=== PATIENT | female | born 1960 | race Caucasian/White ===

== ENCOUNTER → 2024-08-27 11:22 | Outpatient (CLI) | payer MEDICARE, SELFPAY ==
[2024-08-27 12:23] LABS: Influenza A - CEPHEID Flu A NEGATIVE (NEGATIVE); Influenza B - CEPHEID Flu B NEGATIVE (NEGATIVE)
[2024-08-27 12:26] LABS: COVID-19 CEPHEID 4-PLEX PCR Negative (Negative)
== END ==
PROVIDERS: Visit Provider Chiropractor
DX: J02.9 Acute pharyngitis, unspecified (principal); R09.89 Other specified symptoms and signs involving the circulatory and respiratory systems; R50.9 Fever, unspecified
CPT/HCPCS: 87070; 87637